=== PATIENT | female | born 1970 | race Two or more races ===

== ENCOUNTER → 2017-01-16 | Outpatient (CLI) | payer BC ==
[2016-07-15 07:00] VITALS: BP 115/70
[~2017-01-16] MED LIST: CETI10TA22 PO; DIAZ5TAB PO; HYDR-2758 PO; HYDR-971 PO; NAPR500T8 PO; OMEP20CA9 PO; ONDA4TAB10 SL; PANT40TA3 PO; SERT25TA PO; VENL150C PO
--- NOTE | 2017-01-16 13:54 | KCIC ---
DATE: 01/16/2017 EXAM: MAMMO ADDISON SCREENING BILATERAL HISTORY: Routine screening COMPARISON: Previous mammogram from 2014 and 2013 FINDINGS: Breast Density: SCATTERED The breast parenchyma shows scattered fibroglandular densities. Breast parenchyma level B. The nipples and skin are within normal limits. No suspicious calcifications, spiculated masses or areas of architectural distortion. Benign scattered left breast calcifications. IMPRESSION: No mammographic evidence of malignancy. Stable mammogram. BI-RADS CATEGORY: 2 BENIGN FINDING(S) RECOMMENDED FOLLOW-UP: 12M 12 MONTH FOLLOW-UP PQRS compliance statement: Patient information was entered into a reminder system with a target due date 01/16/2018 for the next mammogram. Mammography is a sensitive method for finding small breast cancers, but it does not detect them all and is not a substitute for careful clinical examination. A negative mammogram does not negate a clinically suspicious finding and should not result in delay in biopsying a clinically suspicious abnormality. "Our facility is accredited by the [employer] Mammography [employer]."
== END | disposition home or self-care (01) ==
LOC: KCIC MAMMO 08:49
PROVIDERS: ATTEND Obstetrics & Gynecology
DX: Z12.31 Encounter for screening mammogram for malignant neoplasm of breast (principal)
CPT/HCPCS: 77063; G0202; 77067

== ENCOUNTER 2017-05-31 06:46 | Inpatient (IN) | payer BC ==
[2017-05-31] MEDS: IV NORMAL SALINE 1000ML BAG 1,000 ML IV ×2 (07:37)
[2017-05-31] MEDS: MORPHINE SULFATE 2 MG/ML DISP.SYRIN. IV/SQ ×2 (07:38)
[2017-05-31 07:49] LABS: ADD MAN DIFF? NO
[2017-05-31 07:52] LABS: URINE HCG POC HCG NEGATIVE (Negative)
[2017-05-31 07:56] LABS: BASO % 0 % (0-3); BILIRUBIN,URINE NEGATIVE (NEG); CLARITY,URINE CLEAR; COLOR,URINE YELLOW; EOS % 0 % (0-3); GLUCOSE,URINE NEGATIVE (NEG); HEMATOCRIT 37.8 % (36.0-47.0); HEMOGLOBIN 13.4 g/dL (12.0-15.5); LYMPH # 1.6 x10^3/uL (1.0-4.8); LYMPH % 19 % (24-48); MEAN CORPUSCULAR HEMOGLOBIN 35 pg (25-35); MEAN CORPUSCULAR HGB CONC 35 g/dL (31-37); MEAN CORPUSCULAR VOLUME 98 fL (79-100); MONO # 0.4 x10^3/uL (0.0-1.1); MONO % 4 % (0-9); NEUT # 6.6 x10^3uL (1.8-7.7); NEUT % 76 % (31-73); NITRITE,URINE NEGATIVE (NEG); PLATELET COUNT 232 x10^3/uL (140-400); PROTEIN,URINE NEGATIVE (NEG-TRACE); RED BLOOD COUNT 3.87 x10^6/uL (3.50-5.40); RED CELL DISTRIBUTION WIDTH 12.9 % (11.5-14.5); UROBILINOGEN,URINE 0.2 mg/dL (0.2 mg/dL); WHITE BLOOD COUNT 8.7 x10^3/uL (4.0-11.0)
[2017-05-31 07:59] LABS: ANION GAP 11 (6-14); BLOOD UREA NITROGEN 15 mg/dL (7-20); CARBON DIOXIDE 23 mmol/L (21-32); CHLORIDE 104 mmol/L (98-107); CREATININE 0.8 mg/dL (0.6-1.0); GFR 77.9; GLUCOSE 108 mg/dL (70-99); POTASSIUM 4.3 mmol/L (3.5-5.1); SODIUM 138 mmol/L (136-145)
[2017-05-31 08:04] LABS: BARBITURATES NEG (NEG); BENZODIAZEPINES NEG (NEG); CANNABINOIDS NEG (NEG); COCAINE NEG (NEG); METHADONE NEG (NEG); OPIATES NEG (NEG); PHENCYCLIDINE NEG (NEG)
[2017-05-31 08:05] LABS: AMPHETAMINE/METHAMPHETAMINE NEG (NEG); BACTERIA,URINE 0 /HPF (0-FEW); ETHANOL, URINE NEG (NEG); RBC,URINE 0 /HPF (0-2); SQUAMOUS EPITHELIAL CELL,UR FEW /LPF; WBC,URINE RARE /HPF (0-4)
[2017-05-31 08:06] LABS: ALBUMIN 3.8 g/dL (3.4-5.0); ALK PHOS 70 U/L (46-116); ALT (SGPT) 21 U/L (14-59); AST (SGOT) 19 U/L (15-37); DIRECT BILIRUBIN 0.1 mg/dL (0.0-0.2); LIPASE 87 U/L (73-393); TOTAL BILIRUBIN 0.3 mg/dL (0.2-1.0); TOTAL PROTEIN 7.3 g/dL (6.4-8.2)
[2017-05-31 08:09] LABS: INR 0.9 (0.8-1.1); PARTIAL THROMBOPLASTIN TIME 28 SEC (24-38)
[2017-05-31 08:17] LABS: CREATINE KINASE 122 U/L (26-192)
[2017-05-31 08:18] LABS: CKMB MASS < 0.5 ng/mL (0.0-3.6)
[2017-05-31] MEDS: IOHEXOL 300 MG/ML 100ML VIAL. IV ×2 (10:21)
[2017-05-31] MEDS ORDERED: CONTRAST GIVEN MC ×2 (10:30)
[2017-05-31] MEDS: ONDANSETRON PF 4 MG/2 ML VIAL. IV ×2 (11:59)
[2017-05-31] MEDS: fentaNYL PF VIAL 100 MCG/2 ML VIAL IV ×4 (12:00→14:37)
[2017-05-31] MEDS ORDERED: HYDROcodone/APAP 5/325MG 1 TAB TABLET PO ×2 (16:45)
[2017-05-31] MEDS ORDERED: DICYCLOMINE HCL 10 MG CAPSULE PO ×2 (20:00)
[2017-06-01 06:42] LABS: ADD MAN DIFF? NO
[2017-06-01 06:48] LABS: BASO % 1 % (0-3); EOS # 0.1 x10^3/uL (0.0-0.7); EOS % 1 % (0-3); HEMATOCRIT 37.5 % (36.0-47.0); HEMOGLOBIN 12.8 g/dL (12.0-15.5); LYMPH # 2.6 x10^3/uL (1.0-4.8); LYMPH % 38 % (24-48); MEAN CORPUSCULAR HEMOGLOBIN 34 pg (25-35); MEAN CORPUSCULAR HGB CONC 34 g/dL (31-37); MEAN CORPUSCULAR VOLUME 101 fL (79-100); MONO # 0.3 x10^3/uL (0.0-1.1); MONO % 5 % (0-9); NEUT # 3.9 x10^3uL (1.8-7.7); NEUT % 56 % (31-73); PLATELET COUNT 204 x10^3/uL (140-400); RED BLOOD COUNT 3.73 x10^6/uL (3.50-5.40)
[2017-06-01 07:12] LABS: ANION GAP 6 (6-14); BLOOD UREA NITROGEN 10 mg/dL (7-20); CALCIUM 8.3 mg/dL (8.5-10.1); CARBON DIOXIDE 27 mmol/L (21-32); CHLORIDE 105 mmol/L (98-107); CREATININE 0.8 mg/dL (0.6-1.0); GFR 77.9; GLUCOSE 98 mg/dL (70-99); POTASSIUM 4.1 mmol/L (3.5-5.1); SODIUM 138 mmol/L (136-145)
[2017-06-01] MEDS ORDERED: PANTOPRAZOLE 40 MG TABLET.DR. PO ×2 (07:30)
[2017-06-01] MEDS: CETIRIZINE HCL 10 MG TABLET. PO ×2 (09:00)
== END 2017-06-01 12:40 | disposition home or self-care (01) | DRG 395 ==
LOC: ER 06:46 → ED HOLD 10:52 → 4 NORTH 12:44
DX: K66.0 Peritoneal adhesions (postprocedural) (postinfection) (principal); F32.9 Major depressive disorder, single episode, unspecified; N83.202 Unspecified ovarian cyst, left side; K21.9 Gastro-esophageal reflux disease without esophagitis; Z82.49 Family history of ischemic heart disease and other diseases of the circulatory system; Z83.3 Family history of diabetes mellitus; F41.9 Anxiety disorder, unspecified; Z90.49 Acquired absence of other specified parts of digestive tract; M43.06 Spondylolysis, lumbar region
CPT/HCPCS: 36415; 74018; 74177; 76830; 76856; 80048; 80076; 80307; 81001; 81025; 82553; 83690; 85025; 85610; 85730; 87086; 96361; 96374; 96375; 99285-25; J2270; J2405; J3010; J7030; Q9967

== ENCOUNTER → 2018-04-25 | Outpatient (CLI) | payer BC ==
[2017-06-01 11:00] VITALS: BP 106/58
[~2018-04-25] MED LIST changes: +DICY10CA3 PO; -HYDR-2758 PO; +HYDR-2761 PO; +HYDR-3164 PO; -HYDR-971 PO; +OMEP20CA10 PO; -OMEP20CA9 PO; +PANT20TA2 PO; -PANT40TA3 PO; +PANT40TA77 PO; +[UNRECOGNIZED DRUG - OTHER]
--- NOTE | 2018-04-25 14:47 | KCIC ---
Bilateral digital screening mammograms with 3-D tomosynthesis: Reason for examination: Routine screening. Comparison is made to previous studies dated 01/16/2017 and 03/23/2015. Bilateral mammograms in CC and oblique projections were obtained with 2-D imaging and 3-D tomosynthesis imaging on a Siemens Inspiration unit and reviewed on the workstation. Interpretation was made with the benefit of CAD. The skin and nipples show no abnormalities. No abnormal axillary lymph nodes are seen. The breast parenchyma shows scattered fatty and fibroglandular density. (Breast density: Category B.) There continue to be small circumscribed lesions anteriorly in the left breast which are best seen on oblique view and have not changed. There are no new dominant masses, suspicious calcifications or architectural distortion. Impression: No evidence of malignancy. Recommend routine screening. BI-RAD Category 2: Benign. "Our facility is accredited by the [employer] Mammography Program." This patient's information has been entered into a reminder system for the patient to be notified with the results of her examination and a target date for the next mammogram. Electronically signed by: Mervat Michelle MD (04/25/2018 2:42 PM) [id number]
== END | disposition home or self-care (01) ==
LOC: KCIC MAMMO 10:23
PROVIDERS: ATTEND Family Medicine
DX: Z12.31 Encounter for screening mammogram for malignant neoplasm of breast (principal)
CPT/HCPCS: 77063; 77067

== ENCOUNTER → 2018-05-29 | Outpatient (CLI) | payer BC ==
[2017-06-01 11:00] VITALS: BP 106/58
[~2018-05-29] MED LIST changes: -OMEP20CA10 PO; +OMEP20CA9 PO; +PANT40TA3 PO; -PANT40TA77 PO
--- NOTE | 2018-05-29 13:22 | KCIC ---
EXAM: Lumbar spine MRI without contrast. HISTORY: Back pain and leg weakness. TECHNIQUE: Multiplanar, multisequence magnetic resonance imaging of the lumbar spine was performed without contrast. COMPARISON: None. FINDINGS: There is grade 1 anterolisthesis of L5 on S1, measuring 7 mm. There are bilateral pars interarticularis defects at this level. There is severe degenerative endplate remodeling with disc space narrowing, disc desiccation and osteophytosis at this level. There is mild retrolisthesis of L1 on L2, L2 on L3 and L3 on L4 and L4 and L5. There is additional endplate remodeling with disc space narrowing predominantly at L4-L5. No suspicious osseous lesion is seen. The conus terminates at T12-L1. At L1-L2, there is minimal facet arthropathy. There is no stenosis. At L2-L3, there is minimal anterior predominant endplate remodeling and facet arthropathy. There is no stenosis. At L3-L4, there is minimal anterior predominant endplate remodeling and facet arthropathy. There is no stenosis. At L4-L5, there is a disc bulge and endplate osteophytosis. There is no significant stenosis. At L5-S1, there is a right foraminal to extra foraminal disc protrusion and slight superior extrusion with osteophyte complex and left foraminal to lateral disc osteophyte complex superimposed on a disc bulge and endplate osteophytosis. There is grade 1 anterolisthesis with pars defects. There is severe right and mild to moderate left foraminal stenosis with abutment of the exiting L5 nerve roots. IMPRESSION: 1. L5-S1: Grade 1 anterolisthesis with associated pars interarticularis defects. The combination of this finding and disc protrusions and osteophyte complexes contributes to severe right and mild to moderate left foraminal stenosis with abutment of the exiting L5 nerve roots at this level. 2. Minimal degenerative change within the remainder of the lumbar spine, without significant stenosis. Electronically signed by: Alicja Moon MD (05/29/2018 1:19 PM) [id number]
== END | disposition home or self-care (01) ==
LOC: KCIC MRI 12:32
PROVIDERS: ATTEND Family Medicine
DX: M43.17 Spondylolisthesis, lumbosacral region (principal); M51.27 Other intervertebral disc displacement, lumbosacral region; M48.07 Spinal stenosis, lumbosacral region; M25.78 Osteophyte, vertebrae; M47.896 Other spondylosis, lumbar region; M12.88 Other specific arthropathies, not elsewhere classified, other specified site; M48.061 Spinal stenosis, lumbar region without neurogenic claudication
CPT/HCPCS: 72148

== ENCOUNTER → 2019-02-24 | Outpatient (CLI) | payer BC ==
[2017-06-01 11:00] VITALS: BP 106/58
[~2019-02-24] MED LIST changes: +OMEP20CA10 PO; -OMEP20CA9 PO; -PANT40TA3 PO; +PANT40TA77 PO
--- NOTE | 2019-02-24 16:13 | RAD ---
Examination: GASTRIC EMPTYING STUDY History: Esophagitis, fullness and bloating for one month Comparison/Correlation: 05/31/[address] abdomen and pelvis with IV contrast Findings: 2 mCi technetium 99m sulfur colloid was administered as part of a meal for gastric emptying examination. Imaging was performed in anterior and posterior projections up to 4 hours. At 1 hour, there is 23 percent gastric retention. At 2 hours, there is 12 percent retention of radiotracer. At 3 hours, there is 5 percent retention. At 4 hours there is 3 percent retention. The T1/2 is 44 minutes. Transit of radiotracer through the small bowel is unremarkable. Impression: Accelerated gastric emptying is noted with less than 30 percent radiotracer retention at one hour. No delay in gastric emptying. Electronically signed by: Jamel Marshall MD (02/24/2019 4:10 PM) [facility]
== END | disposition home or self-care (01) ==
LOC: NM 07:25
PROVIDERS: ATTEND Internal Medicine Gastroenterology
DX: R11.0 Nausea (principal)
CPT/HCPCS: 78264; A9541

== ENCOUNTER → 2019-03-16 | Outpatient (CLI) | payer BC ==
[2017-06-01 11:00] VITALS: BP 106/58
[~2019-03-16] MED LIST changes: +IOHEXOL 240 MG/ML 50ML VIAL. PO ONE; +IOHEXOL 300 MG/ML 100ML VIAL. IV ONE; +OMEP-229 PO; -OMEP20CA10 PO
--- NOTE | 2019-03-16 15:49 | KCIC ---
CT of the abdomen and pelvis with IV and oral contrast 03/16/2019 INDICATION: Nausea, vomiting, abdominal pain. Decreased appetite. Stomach cramping. COMPARISON STUDY: CT of the abdomen and pelvis with contrast May 31, 2017. TECHNIQUE: Multidetector CT imaging of the abdomen and pelvis was performed following the administration of IV and enteric contrast FINDINGS: Visualized lung bases are unremarkable. Prior cholecystectomy is noted. The liver, spleen, kidneys, adrenal glands, pancreas have an unremarkable appearance. There is no bowel obstruction. No evidence of acute inflammatory change involving the bowel is identified. Prior appendectomy noted. No evidence of acute inflammatory change involving the bowel is identified. Visualized bladder is grossly unremarkable. Bilateral spondylolysis at L5 is seen with grade 1 anterolisthesis of L5 on S1. The appearance is unchanged in the interim since comparison study. IMPRESSION: No evidence of acute intra-abdominal abnormality or acute change from prior study. CT DOSING PQRS STATEMENT: One or more of the following individualized dose reduction techniques were utilized for this examination: 1. Automated exposure control 2. Adjustment of the mA and/or kV according to patient size 3. Use of iterative reconstruction technique Electronically signed by: Jaswatn Leivne MD (03/16/2019 3:45 PM) [facility]
== END | disposition home or self-care (01) ==
LOC: KCIC CT 10:03
PROVIDERS: ATTEND Internal Medicine Gastroenterology
DX: R11.2 Nausea with vomiting, unspecified (principal); M43.06 Spondylolysis, lumbar region; M43.07 Spondylolysis, lumbosacral region; Z90.49 Acquired absence of other specified parts of digestive tract
CPT/HCPCS: 74177; Q9966; Q9967

== ENCOUNTER → 2019-05-18 | Outpatient (CLI) | payer BC ==
[2017-06-01 11:00] VITALS: BP 106/58
[~2019-05-18] MED LIST changes: -CETI10TA22 PO; +CETI10TA24 PO; -IOHEXOL 240 MG/ML 50ML VIAL. PO ONE; -IOHEXOL 300 MG/ML 100ML VIAL. IV ONE; -OMEP-229 PO; +OMEP20CA16 PO
--- NOTE | 2019-05-18 17:10 | KCIC ---
Bilateral digital screening mammograms with 3-D tomosynthesis: Reason for examination: Routine screening. Comparison is made to previous studies dated 04/25/2018 and 01/16/2017. Bilateral mammograms in CC and oblique projections were obtained with 2-D imaging and 3-D tomosynthesis imaging on a Siemens Inspiration unit and reviewed on the workstation. Interpretation was made with the benefit of CAD. The skin and nipples show no abnormalities. No abnormal axillary lymph nodes are seen. The breast parenchyma is heterogeneously dense. (Breast density: Category C.) There continue to be a small circumscribed lesion anteriorly at the 12:00 position of the right breast which is stable. There is however a 8.4 mm nodular density at approximately the 2:00 position of the left breast 7.5 cm from the nipple. Further evaluation with ultrasound is recommended. There are no other new dominant masses, suspicious calcifications or architectural distortion. Impression: 8.4 mm nodular density at the 2:00 B position of the left breast approximately 7.5 cm from the nipple. Recommend further evaluation with ultrasound. Your patient's mammogram demonstrates that she has dense breast tissue (breast density category C or D), which could hide abnormalities, and if she has other risk factors for breast cancer that have been identified, she might benefit from supplemental screening tests that may be suggested by you as her ordering physician. Dense breast tissue, in and of itself, is a relatively common condition. Therefore, this information is not provided to cause undue concern, but rather to raise your awareness and to promote discussion with your patient regarding the presence of other risk factors, in addition to dense breast tissue. Your patient's mammography results will be sent to her. BI-RAD Category 0: Incomplete. Needs additional imaging evaluation. "Our facility is accredited by the [employer] Mammography Program." This patient's information has been entered into a reminder system for the patient to be notified with the results of her examination and a target date for the next mammogram. Electronically signed by: Mervat Michelle MD (05/18/2019 5:07 PM) [email or web address]
== END | disposition home or self-care (01) ==
LOC: KCIC MAMMO 14:36
PROVIDERS: ATTEND Family Medicine
DX: Z12.31 Encounter for screening mammogram for malignant neoplasm of breast (principal)
CPT/HCPCS: 77063; 77067

== ENCOUNTER → 2019-05-21 | Outpatient (CLI) | payer BC ==
[2017-06-01 11:00] VITALS: BP 106/58
--- NOTE | 2019-05-21 16:11 | KCIC ---
Left breast ultrasound: Reason for examination: Nodular density on screening mammogram. Comparison is made to mammographic examination dated 05/18/2019. Ultrasound examination of the left breast and axilla was performed. At the 1:30 position 7 cm from the nipple, there is a 5.4 mm hypoechoic irregularly marginated nodule present which would correspond with the mammographic finding. Further evaluation of this lesion with aspiration/biopsy is recommended. No other cystic or solid lesions are seen. No abnormal appearing lymph nodes are seen in the axilla. IMPRESSION: 5.4 mm nodule at the 1:30 position 7 cm from the nipple corresponds to the mammographic finding. Further evaluation with ultrasound-guided aspiration/biopsy is recommended. BI-RADS Category 4: Suspicious. These findings have been discussed with the patient and the patient's physician, Dr. Marie, was notified about these findings at 4:03 PM on 05/21/2019 via a message left on the physician assistant producer's answering machine. "Our facility is accredited by the [employer] Mammography Program." This patient's information has been entered into a reminder system for the patient to be notified with the results of her examination and a target date for the next mammogram. Electronically signed by: Mervat Michelle MD (05/21/2019 4:08 PM) [email or web address]
== END | disposition home or self-care (01) ==
LOC: KCIC US 12:32
PROVIDERS: ATTEND Family Medicine
DX: N63.21 Unspecified lump in the left breast, upper outer quadrant (principal)
CPT/HCPCS: 76641

== ENCOUNTER → 2019-06-02 | Outpatient (CLI) | payer BC ==
[2017-06-01 11:00] VITALS: BP 106/58
--- NOTE | 2019-06-02 17:39 | RAD ---
Examination: US GUID NDL PLACE/ASPI/BX, DIGITAL DIAGNOSTIC LT History: Left breast mass Comparison/Correlation: 05/21/2019 left breast ultrasound, 05/18/2019 screen mammographic examination Findings: Risks and benefits of ultrasound-guided core biopsy were discussed with the patient. Informed consent was obtained. Cleansing with ChloraPrep was performed. Sterile drapes were placed. 10 cc 1 percent lidocaine was administered lateral to the mass and then medial to it with a spinal needle. Introducer was placed after scalpel incision was made with a lateral approach. 12-gauge core biopsy needle was placed via the introducer. 5 samples were obtained with firing of the needle through the mass. Specimens were placed in formalin. Biopsy clip marker was subsequently placed via the introducer. Postbiopsy MLO and CC images were acquired and reviewed on a mammographic workstation. Soft tissue gas is identified the left upper outer breast. The biopsy clip marker is approximately 2.5 cm medial to the expected mass site based on the mammographic exam of 05/18/2019. The mass is not delineated on mammographic exam. No hematoma collection. Impression: Successful biopsy of the left upper outer breast mass. Clip marker is medial in location to the mass on comparison with the previous exam. Electronically signed by: Jamel Marshall MD (06/02/2019 5:36 PM) [email or web address]
--- NOTE | 2019-06-03 18:06 | PATHOLOGY ---
[facility] Accession Number: [id number] . 01 Material submitted: . breast - LEFT BREAST 1:30 7CMFN. Modifiers: left . 01 Clinical history: . Left breast nodule 1:30 7CFN (0.5 x 0.3 x 0.4 cm) . 02 Diagnosis: Breast tissue, left breast nodule 1:30, needle biopsies: - Focal stromal fibrosis with chronic inflammation and focally clustered histiocytes. . (JPM:mml; 06/03/2019) [facility] 06/03/2019 1620 Local . 02 Comment: There is no atypia or evidence of malignancy. Please correlate with radiographic findings. . (JPM:mml; 06/03/2019) . 02 Electronically signed: . Thang Bailey MD, Pathologist NPI- [id number] . 01 Gross description: . The specimen is received in formalin, labeled "America Cantor, left breast" and consists of 2 white-pink needle cores measuring 0.6 cm and 0.8 cm in length and 0.2 cm each in diameter which are entirely submitted in A1-A2. Received additionally are a few needle core fragments measuring 1.1 x 0.9 x 0.2 cm in aggregate which are entirely submitted in A3. . The specimen was obtained at 2:10 PM on 06/02/2019 and placed in formalin at 2:15 PM. The cold ischemic time is 5 minutes and the total formalin fixation time is greater than 6 hours less than 72 hours. (SDY; 06/02/2019) [facility]U 06/02/2019 1653 Local . 02 Pathologist provided ICD-10: N60.32, N61.0 . 02 CPT . 806937 Specimen Comment: A courtesy copy of this report has been sent to [phone] Specimen Comment: Report sent to Performed at: [address] [facility], [place] [id number] MD Eder Billings MD Phone: [phone] Performed at: 02 [facility] [place] [address] [place], [place] [id number] MD Thang Bailey MD Phone: [phone]
== END ==
LOC: US 13:09
PROVIDERS: ATTEND Surgery
DX: R92.8 Other abnormal and inconclusive findings on diagnostic imaging of breast (principal); N60.32 Fibrosclerosis of left breast; N61.0 Mastitis without abscess
CPT/HCPCS: 19083; 77065; 88305; C1713; 19081; 76942

== ENCOUNTER → 2019-10-28 | Emergency (ER) | payer BC ==
[~2019-10-28] VITALS: Ht 154.9 cm; Wt 61.3 kg
[~2019-10-28] MED LIST changes: +IV NORMAL SALINE 1000ML BAG 1,000 ML IV SCH; +ONDANSETRON PF 4 MG/2 ML VIAL. IVP ONE; +PROC10TA57 PO
--- NOTE | 2019-10-28 15:17 | PHYS DOC ---
Past Medical History Past Medical History: Anxiety, Depression, GERD, Other Additional Past Medical Histor: SEASONAL ALLERGIES Past Surgical History: Appendectomy, Cholecystectomy, Other Additional Past Surgical Histo: Uterine Ablation. Smoking Status: Former Smoker Alcohol Use: Occasionally Drug Use: None General Adult EDM: Chief Complaint: NAUSEA/VOMITING/DIARRHA HPI: HPI: 49-year-old female with 2 weeks of nausea. Patient denies any vomiting or abdominal pain. No headaches no fevers chills or diarrhea. Patient called her GI doctor who started her on Carafate. Patient has also started a PPI. Review of Systems: Review of Systems: Constitutional: Denies fever or chills. [] Eyes: Denies change in visual acuity. [] HENT: Denies nasal congestion or sore throat. [] Respiratory: Denies cough or shortness of breath. [] Cardiovascular: Denies chest pain or edema. [] GI: Denies abdominal pain, vomiting, bloody stools or diarrhea. [+ Nausea : Denies dysuria. [] Musculoskeletal: Denies back pain or joint pain. [] Integument: Denies rash. [] Neurologic: Denies headache, focal weakness or sensory changes. [] Endocrine: Denies polyuria or polydipsia. [] Lymphatic: Denies swollen glands. [] Psychiatric: Denies depression or anxiety. [] Heart Score: HEART Score for Chest Pain: HEART Score for Chest Pain Response (Comments) Value History Slighlty/Non-Suspicious 0 ECG Normal 0 Age >45 - < 65 1 Risk Factors No Risk Factors 0 Troponin < Normal Limit 0 Total 1 Risk Factors: Risk Factors: DM, Current or recent (<one month) smoker, HTN, HLP, family history of CAD, obesity. Risk Scores: Score 0 - 3: 2.5% MACE over next 6 weeks - Discharge Home Score 4 - 6: 20.3% MACE over next 6 weeks - Admit for Clinical Observation Score 7 - 10: 72.7% MACE over next 6 weeks - Early Invasive Strategies Allergies: Allergies: Allergies Coded Allergies Type Severity Reaction Last Updated Verified No Known Drug Allergies 07/13/16 No Physical Exam: PE: Constitutional: Well developed, well nourished, no acute distress, non-toxic appearance. [] HENT: Normocephalic, atraumatic, bilateral external ears normal, oropharynx moist, no oral exudates, nose normal. [] Eyes: PERRLA, EOMI, conjunctiva normal, no discharge. [] Neck: Normal range of motion, no tenderness, supple, no stridor. [] Cardiovascular:Heart rate regular rhythm, no murmur [] Lungs & Thorax: Bilateral breath sounds clear to auscultation [] Abdomen: Bowel sounds normal, soft, no tenderness, no masses, no pulsatile masses. [] Skin: Warm, dry, no erythema, no rash. [] Back: No tenderness, no CVA tenderness. [] Extremities: No tenderness, no cyanosis, no clubbing, ROM intact, no edema. [] Neurologic: Alert and oriented X 3, normal motor function, normal sensory function, no focal deficits noted. [] Psychologic: Affect normal, judgement normal, mood normal. [] Current Patient Data: Labs: Laboratory Tests Test 10/28/19 15:04 10/28/19 15:08 10/28/19 15:35 Urine Collection Type Unknown Urine Color Yellow Urine Clarity Clear Urine pH 5.5 Urine Specific Alexander 1.020 Urine Protein Negative mg/dL Urine Glucose (UA) Negative mg/dL Urine Ketones (Stick) 15 mg/dL Urine Blood Negative Urine Nitrite Negative Urine Bilirubin Negative Urine Urobilinogen Dipstick 0.2 mg/dL Urine Leukocyte Esterase Moderate Urine RBC 0 /HPF Urine WBC 5-10 /HPF Urine Squamous Epithelial Cells Many /LPF Urine Bacteria Mod /HPF Urine Mucus Marked /LPF Bedside Urine HCG, Qualitative Hcg negative White Blood Count 7.6 x10^3/uL Red Blood Count 3.79 x10^6/uL Hemoglobin 13.1 g/dL Hematocrit 37.2 % Mean Corpuscular Volume 98 fL Mean Corpuscular Hemoglobin 35 pg Mean Corpuscular Hemoglobin Concent 35 g/dL Red Cell Distribution Width 12.7 % Platelet Count 212 x10^3/uL Neutrophils (%) (Auto) 66 % Lymphocytes (%) (Auto) 28 % Monocytes (%) (Auto) 6 % Eosinophils (%) (Auto) 0 % Basophils (%) (Auto) 1 % Neutrophils # (Auto) 5.0 x10^3/uL Lymphocytes # (Auto) 2.1 x10^3/uL Monocytes # (Auto) 0.4 x10^3/uL Eosinophils # (Auto) 0.0 x10^3/uL Basophils # (Auto) 0.0 x10^3/uL Sodium Level 138 mmol/L Potassium Level 4.2 mmol/L Chloride Level 102 mmol/L Carbon Dioxide Level 25 mmol/L Anion Gap 11 Blood Urea Nitrogen 10 mg/dL Creatinine 1.0 mg/dL Estimated GFR (Cockcroft-Gault) 59.4 BUN/Creatinine Ratio 10 Glucose Level 93 mg/dL Calcium Level 8.6 mg/dL Total Bilirubin 0.5 mg/dL Aspartate Amino Transf (AST/SGOT) 18 U/L Alanine Aminotransferase (ALT/SGPT) 25 U/L Alkaline Phosphatase 50 U/L Troponin I Quantitative < 0.017 ng/mL Total Protein 7.5 g/dL Albumin 3.9 g/dL Albumin/Globulin Ratio 1.1 Amylase Level 56 U/L Lipase 80 U/L Current Medications Medications (Trade) Dose Ordered Sig/Esa Route PRN Reason Start Time Stop Time Status Last Admin Dose Admin Sodium Chloride 1,000 ml @ 1,000 mls/hr Q1H IV 10/28/19 15:11 10/28/19 16:10 DC 10/28/19 15:36 Ondansetron HCl (Zofran) 4 mg 1X ONCE IVP 10/28/19 15:15 10/28/19 15:26 DC 10/28/19 15:15 Laboratory Tests Test 10/28/19 15:08 POC Urine HCG, Qualitative Hcg negative (Negative) EKG: EKG: [Normal sinus rhythm with rate of 66, normal axis, normal intervals, normal ST segments Radiology/Procedures: Radiology/Procedures: [] Course & Med Decision Making: Course & Med Decision Making 15:25: d/w Dr. Guardado, suggests troponin and ekg and follow up outpatient w/u reassuring. abd soft. no guard/rebound, no ttp. stable for d/c and outpt f/u Dragon Disclaimer: Dragon Disclaimer: This electronic medical record was generated, in whole or in part, using a voice recognition dictation system. Departure Departure Impression: Primary Impression: Nausea and vomiting Disposition: HOME, SELF-CARE Condition: STABLE Referrals: JARED KRUSE MD (PCP) DEAN GUARDADO MD Patient Instructions: Nausea, Adult Additional Instructions: EMERGENCY DEPARTMENT GENERAL DISCHARGE INSTRUCTIONS THANK YOU for coming to [facility] Emergency Department (ED) today and trusting us with your care. We trust that you had a positive experience in our Emergency Department. If you wish to speak to the department Management you can contact the math and sciences department chair at . YOUR FOLLOW UP INSTRUCTIONS ARE FOLLOWS: Do you have a private doctor? If you do not have a private doctor, please ask for a resource list of physicians or clinics that may be able to assist you with follow up care. The Emergency Physician has interpreted your x-rays. The X-ray specialist will also review them. If there is a change in the findings you will be notified in 48 hours when at all possible. A lab test or lab culture may have been done, your results will be reviewed and you will be notified if you need a change in treatment. ADDITIONAL INSTRUCTIONS AND INFORMATION Your care today has been supervised by a physician who is specially trained in emergency care. Many problems require more than one evaluation for a complete diagnosis and treatment. We recommend that you schedule your follow up appointment as recommended to ensure complete treatment of your illness or injury. If you are unable to obtain follow up care and continue to have a problem, or if your condition worsens we recommend that you return to the ED. We are not able to safely determine your condition over the phone nor are we able to give sound medical advice over the phone. For these safety reasons, if you call for medical advice we will ask you to come to the ED for further evaluation If you have any questions regarding these discharge instructions please call the ED at . SAFETY INFORMATION In the interest of safety, wellness, and injury prevention; we encourage you to wear your seatbelt, if you smoke; quit smoking, and we encourage your family to use protective helmet for bicycling and other sporting events that present an increased risk for head injury. IF YOUR SYMPTOMS WORSEN OR NEW SYMPTOMS DEVELOP, OR YOU HAVE CONCERNS ABOUT YOUR CONDITION; OR IF YOUR CONDITION WORSENS WHILE YOU ARE WAITING FOR YOUR FOLLOW UP APPOINTMENT; EITHER CONTACT YOUR PRIMARY CARE DOCTOR, THE PHYSICIAN WHOSE NAME AND NUMBER YOU WERE GIVEN, OR RETURN TO THE ED IMMEDIATELY. Follow-up with your GI doctor for referral to GI clinic. Return if concerns take Compazine as needed in addition to Zofran for nausea Scripts Prochlorperazine Maleate (Compazine) 10 Mg Tablet 1 TAB PO Q6HRS PRN for NAUSEA/VOMITING for 7 Days, #28 TAB 0 Refills Prov: DEAN WILKES MD 10/28/19 Justicifation of Admission Dx: Justifications for Admission: Justification of Admission Dx: N/A DEAN WILKES MD Oct 28, 2019 15:17
[2019-10-28 15:25] LABS: BILIRUBIN,URINE NEGATIVE (NEG); CLARITY,URINE CLEAR; COLOR,URINE YELLOW; NITRITE,URINE NEGATIVE (NEG); PH,URINE 5.5 (<5.0-8.0); PROTEIN,URINE NEGATIVE (NEG-TRACE); UROBILINOGEN,URINE 0.2 mg/dL (0.2 mg/dL)
[2019-10-28 15:29] LABS: SQUAMOUS EPITHELIAL CELL,UR MANY /LPF
[2019-10-28 15:30] LABS: BACTERIA,URINE MOD /HPF (0-FEW)
[2019-10-28 15:31] LABS: RBC,URINE 0 /HPF (0-2)
[2019-10-28 15:52] LABS: BASO % 1 % (0-3); EOS % 0 % (0-3); HEMATOCRIT 37.2 % (36.0-47.0); HEMOGLOBIN 13.1 g/dL (12.0-15.5); LYMPH # 2.1 x10^3/uL (1.0-4.8); LYMPH % 28 % (24-48); MEAN CORPUSCULAR HEMOGLOBIN 35 pg (25-35); MEAN CORPUSCULAR HGB CONC 35 g/dL (31-37); MEAN CORPUSCULAR VOLUME 98 fL (79-100); MONO # 0.4 x10^3/uL (0.0-1.1); MONO % 6 % (0-9); NEUT % 66 % (31-73); PLATELET COUNT 212 x10^3/uL (140-400); RED BLOOD COUNT 3.79 x10^6/uL (3.50-5.40); RED CELL DISTRIBUTION WIDTH 12.7 % (11.5-14.5); WHITE BLOOD COUNT 7.6 x10^3/uL (4.0-11.0)
[2019-10-28 16:01] LABS: CALCIUM 8.6 mg/dL (8.5-10.1); GFR 59.4; POTASSIUM 4.2 mmol/L (3.5-5.1)
[2019-10-28 16:08] LABS: ALBUMIN 3.9 g/dL (3.4-5.0); ALBUMIN/GLOBULIN RATIO 1.1 (1.0-1.7); TOTAL BILIRUBIN 0.5 mg/dL (0.2-1.0); TOTAL PROTEIN 7.5 g/dL (6.4-8.2)
[2019-10-28 16:14] VITALS: BP 155/73
--- NOTE | 2019-10-29 06:19 | EKG ---
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
== END ==
LOC: ER 14:55
DX: R11.2 Nausea with vomiting, unspecified (principal); F41.9 Anxiety disorder, unspecified; F32.9 Major depressive disorder, single episode, unspecified; K21.9 Gastro-esophageal reflux disease without esophagitis; Z90.89 Acquired absence of other organs; Z90.49 Acquired absence of other specified parts of digestive tract; Z98.890 Other specified postprocedural states; Z87.891 Personal history of nicotine dependence
CPT/HCPCS: 36415; 80053; 81001; 81025; 82150; 83690; 84484; 85025; 93005; 96361; 96374; 99284; J2405; J7030

== ENCOUNTER → 2019-11-03 | Outpatient (CLI) | payer BC ==
[2019-10-28 16:14] VITALS: BP 155/73
[~2019-11-03] MED LIST changes: -IV NORMAL SALINE 1000ML BAG 1,000 ML IV SCH; -ONDANSETRON PF 4 MG/2 ML VIAL. IVP ONE
--- NOTE | 2019-11-03 09:36 | KCIC ---
CT HEAD WITHOUT CONTRAST 11/03/2019 9:30 AM Indication: Reason: NAUSEA, VOMITING / Spl. Instructions: Hx. left breast mass / History: Comparison: None available Procedure: Multidetector CT imaging of the head was performed without the administration of contrast. Findings: There is no evidence of acute intracranial hemorrhage. There is no evidence of acute territorial infarction. Please note that CT is limited for evaluation of acute ischemia. No mass effect or midline shift is identified . The ventricles and basilar cisterns have an appropriate appearance. No abnormal extra-axial fluid collections are seen. No acute osseous changes are identified. Impression: 1.No evidence of acute intracranial abnormality 2. If there is a history of malignancy, or continued clinical concern for intracranial metastasis, contrast-enhanced MRI offers significantly more sensitive evaluation. CT DOSING PQRS STATEMENT: One or more of the following individualized dose reduction techniques were utilized for this examination: 1. Automated exposure control 2. Adjustment of the mA and/or kV according to patient size 3. Use of iterative reconstruction technique Electronically signed by: Jaswant Levine MD (11/03/2019 9:33 AM) [id number]
== END ==
LOC: KCIC CT 09:00
PROVIDERS: ATTEND Internal Medicine Gastroenterology
DX: R11.0 Nausea (principal); R11.10 Vomiting, unspecified
CPT/HCPCS: 70450

== ENCOUNTER → 2020-06-20 | Outpatient (CLI) | payer BC ==
[2019-10-28 16:14] VITALS: BP 155/73
[~2020-06-20] MED LIST changes: -CETI10TA24 PO; +CETI10TA74 PO
--- NOTE | 2020-06-20 10:58 | RAD ---
EXAM: Bilateral digital diagnostic mammogram with tomosynthesis; right breast sonogram. HISTORY: 49-year-old female presents with right breast pain. The patient reports no focal palpable jackelyn mp. The patient is due for bilateral mammography. TECHNIQUE: Full-field digital craniocaudal and mediolateral oblique 2D and 3D tomosynthesis images of both breasts are obtained for evaluation. Computer aided detection was applied. Sonographic imaging of the right breast localized to the site of palpable concern and areas of mammographic asymmetry was also performed. COMPARISON: 06/02/2019, 05/18/2019, 04/25/2018, 01/16/2017 BREAST PARENCHYMAL DENSITY: Level B - Scattered fibroglandular densities. FINDINGS: There is no new suspicious mass, microcalcification or region of architectural distortion. There are stable areas of asymmetry and nodularity within both breasts. There is a biopsy clip within the left breast. Sonographic imaging of the right breast demonstrates no suspicious finding at the site of pain at the 9:00 position. There is a 6 mm circumscribed hypoechoic lesion with internal echoes at the 12:00 pos ition 3 cm from the nipple, the appearance of which is consistent with a benign complicated cyst or f ibrocystic lesion. There is a similar-appearing benign complicated cyst with internal echoes likely d ue to debris at the 12:30 position 3 cm from nipple measuring 6 mm. No suspicious lesion is seen. IMPRESSION: 1. No new suspicious mammographic finding or right breast sonographic finding. 2. Small benign complicated cysts or fibrocystic lesions within the 12:00 and 12:30 positions of the right breast demonstrated sonographically. 3. BI-RADS Category 2: Benign finding(s). RECOMMENDATION: Annual mammography is recommended. If your mammogram demonstrates that you have dense breast tissue, which could hide abnormalities, and if you have other risk factors for breast cancer that have been identified, you might benefit from s upplemental screening tests that may be suggested by your ordering physician. Dense breast tissue, i n and of itself, is a relatively common condition. This information is not provided to cause undue c oncern, but rather to raise your awareness and to promote discussion with your physician regarding th e presence of other risk factors, in addition to dense breast tissue. A report of your mammography re sults will be sent to you and your physician. You should contact your physician if you have any ques tions or concerns regarding this report. Mammography is a sensitive method for finding small breast cancers, but it does not detect them all a nd is not a substitute for careful clinical examination. A negative mammogram does not negate a clin ically suspicious finding and should not result in delay in biopsying a clinically suspicious abnorma lity. PQRS compliance statement - Patient information was entered into a reminder system with a target due date for the next mammogram. "Our facility is accredited by the [employer] Mammography [employer]." Electronically signed by: Alicja Moon MD (06/20/2020 10:56 AM) [id number]
== END ==
LOC: MAMMO 09:02
PROVIDERS: ATTEND Obstetrics & Gynecology
DX: N60.01 Solitary cyst of right breast (principal); N64.4 Mastodynia
CPT/HCPCS: 76641; 77066; G0279; 77062

== ENCOUNTER → 2020-06-28 | Outpatient (CLI) | payer BC ==
[2019-10-28 16:14] VITALS: BP 155/73
--- NOTE | 2020-06-28 10:19 | KCIC ---
Indication: Postmenopausal screening for osteoporosis. Bone Density: -BMD: (g/cm2) - AP Spine Total (L1-L4)..........1.205. - Total left Hip.................0.964. T-Score: - AP Spine Total (L1-L4).........1.4. - Total left Hip.................0.2. Z-Score: - AP Spine Total (L1-L4)..........2.0. - Total left Hip.................0.3. World Health Organization criteria for BMD interpretation classify patients as Normal (T-score at or above -1.0), Osteopenic (T-score between -1.0 and -2.5), or Osteoporotic (T-score at or below -2.5). Impression: 1. AP Spine Total L1-L4---normal. 2. Total left Hip---normal. Electronically signed by: Daniel Horton MD (06/28/2020 10:17 AM) [id number]
== END ==
LOC: KCIC DEXA 08:49
PROVIDERS: ATTEND Obstetrics & Gynecology
DX: Z78.0 Asymptomatic menopausal state (principal)
CPT/HCPCS: 77080

== ENCOUNTER → 2021-06-21 | Outpatient (CLI) | payer BC ==
[2019-10-28 16:14] VITALS: BP 155/73
--- NOTE | 2021-06-22 08:57 | RAD ---
EXAMINATION: MG BILAT SCREEN+ADDISON CLINICAL HISTORY: Screening TECHNIQUE: Digital craniocaudal and mediolateral oblique views of the bilateral breasts obtained with 3-D tomosynthesis. COMPARISON: 06/20/2020, 06/02/2019, 05/18/2019, 04/25/2018, 06/02/2019, 01/16/2017, BREAST COMPOSITION: There are scattered areas of fibroglandular density. FINDINGS: No evidence of suspicious mass, calcifications, or areas of architectural distortion. Biopsy marker c lip in the left upper-outer quadrant remains in similar position. IMPRESSION: No mammographic evidence of malignancy. BI-RADS ASSESSMENT: Category 2: Benign RECOMMENDATION: Return for routine bilateral screening mammogram in one year. PQRS compliance statement - Patient information was entered into a reminder system with a target due date for the next mammogram. "Our facility is accredited by the [employer] Mammography Program." Electronically signed by: Austin Vicente DO (06/22/2021 8:55 AM) [id number]
== END ==
LOC: MAMMO 15:23
PROVIDERS: ATTEND Family Medicine
DX: Z12.31 Encounter for screening mammogram for malignant neoplasm of breast (principal)
CPT/HCPCS: 77063; 77067

== ENCOUNTER → 2021-08-01 | Outpatient (CLI) | payer BC ==
[2019-10-28 16:14] VITALS: BP 155/73
[~2021-08-01] MED LIST changes: -VENL150C PO; +VENL150C3 PO
--- NOTE | 2021-08-01 15:14 | KCIC ---
CT HEAD/BRAIN WO History: Closed head injury with concussion. No loss of consciousness. Fall 2 months ago. Headaches. Comparison: CT head 11/03/2019 Technique: Noncontrast CT imaging was performed of the head. Findings: No intracranial hemorrhage. No mass effect. No hydrocephalus. No evidence of acute territorial infar ction. Imaged orbits are unremarkable. Imaged paranasal sinuses and mastoid air cells are clear. The scalp a nd calvarium are unremarkable. Impression: 1. No intracranial abnormality. ----- Exposure: One or more of the following individualized dose reduction techniques were utilized for thi s examination: 1. Automated exposure control 2. Adjustment of the mA and/or kV according to patient size 3. Use of iterative reconstruction technique. Electronically signed by: Carlton Mead MD (08/01/2021 3:12 PM) [facility]
== END ==
LOC: KCIC MRI 14:25
PROVIDERS: ATTEND Family Medicine
DX: S06.0X0A Concussion without loss of consciousness, initial encounter (principal); X58.XXXA Exposure to other specified factors, initial encounter; Y93.89 Activity, other specified; Y92.89 Other specified places as the place of occurrence of the external cause; Y99.8 Other external cause status
CPT/HCPCS: 70450